=== PATIENT | female | born 1950 | race Caucasian/White ===

== ENCOUNTER 2017-12-09 05:35 | Inpatient (IN) | payer MEDICARE, MEDICAID ==
[~2017-12-09] VITALS: Ht 157.5 cm; Wt 70.3 kg
[~2017-12-09 05:35] MED LIST: BENA5TAB3 PO; CLOP75TA16 PO; FERR325T6 PO; INSNOV SUBCUT; INSU100I28 SQ; LEVO50TA8 PO; METF10002 PO; NAP5EC PO; PRAV10TA35 PO; PREG75CA PO; TRAM50TA3 PO
[2017-12-16] VITALS (41 sets, daily range): BP systolic 90–194; BP diastolic 33–170
[2017-12-16 10:00] LABS: BASOPHILS % 0.6 % (0.0-2.0); EOSINOPHILS % 3.4 % (0.0-5.0); HEMATOCRIT. 34.9 % (36.0-48.0); HEMOGLOBIN. 11.3 g/dL (12.0-16.0); LYMPHOCYTES % 28.9 % (20.0-50.0); MEAN CORPUSCULAR HEMOGLOBIN 29.4 pg (28.0-32.0); MEAN CORPUSCULAR VOLUME 90.8 fL (81.0-99.0); MEAN PLATELET VOLUME 9.3 fl (7.4-10.4); MONOCYTES % 7.5 % (2.0-8.0); NEUTROPHILS % 59.6 % (40.0-76.0); PLATELET 335 x1000/uL (130-400); RED BLOOD CELL COUNT 3.84 mill/uL (4.2-5.4); RED CELL DISTRIBUTION WIDTH 17.4 % (11.6-14.6)
[2017-12-16 10:05] LABS: CHLORIDE 106 mEq/L (98-107)
[2017-12-16] MEDS ORDERED: FENTANYL CITRATE/PF 50MCG/ML 2ML VIAL ONE (10:31)
[2017-12-16] MEDS ORDERED: ROCURONIUM BROMIDE 10MG/ML VIAL 5ML IV ONE (10:31)
[2017-12-16] MEDS ORDERED: GLYCOPYRROLATE 0.2 MG/ML 2ML VIAL ONE ×2 (10:32→12:00)
[2017-12-16] MEDS ORDERED: NEOSTIGMINE METHYLSULFATE 1MG/ML 10 ML VIAL ONE (10:32)
[2017-12-16] MEDS ORDERED: PROPOFOL 200MG/20ML VIAL IV ONE (10:32)
[2017-12-16] MEDS ORDERED: MIDAZOLAM HCL 2 MG/2 ML VIAL ONE (10:32)
[2017-12-16] MEDS ORDERED: VANCOMYCIN HCL 500 MG/VIAL ONE (10:53)
[2017-12-16] MEDS ORDERED: NORMAL SALINE 0.9% 10 ML SYR ONE ×2 (10:54→14:17)
[2017-12-16] MEDS ORDERED: DEXAMETHASONE 4MG/ML 1ML VIAL ONE (11:04)
[2017-12-16] MEDS ORDERED: ONDANSETRON HCL 4MG/2ML VIAL ONE (11:04)
[2017-12-16] MEDS ORDERED: FENTANYL CITRATE/PF 50MCG/ML 5ML VIAL ONE (11:04)
[2017-12-16] MEDS ORDERED: HYDROMORPHONE HCL/PF 2MG/ML CPJ IV PRN (12:15)
[2017-12-16] MEDS ORDERED: LABETALOL 5MG/ML SYR 20 MG/4 ML SYRINGE IV PRN (12:15)
[2017-12-16] MEDS ORDERED: MEPERIDINE HCL/PF 25MG/ML CPJ IV PRN (12:15)
[2017-12-16] MEDS ORDERED: ONDANSETRON HCL 4MG/2ML VIAL IV PRN (12:15)
[2017-12-16] MEDS ORDERED: NICARDIPINE 100 MG in SODIUM CHLORIDE 0.9% 60 ML IV PRN ×2 (12:30→13:30)
[2017-12-16] MEDS: DEXT 5%/LACTATED RINGERS 1,000 ML IV SCH ×2 (13:21→21:12)
[2017-12-16] MEDS: MORPHINE SULFATE 4 MG/ML CPJ (NOT FOR IM USE) IV PRN (14:12)
[2017-12-16] MEDS ORDERED: NALOXONE INJ IV PRN (14:15)
[2017-12-16] MEDS ORDERED: DIPHENHYDRAMINE INJ IV PRN (14:15)
[2017-12-16] MEDS ORDERED: ONDANSETRON INJ IV PRN (14:15)
[2017-12-16] MEDS ORDERED: BACITRACIN 50,000 UNITS/VIAL ONE (14:17)
[2017-12-16] MEDS ORDERED: GELATIN SPONGE,ABSORBABLE SZ 100 ONE (14:17)
[2017-12-16] MEDS ORDERED: THROMBIN (BOVINE) 5000 UNITS/VIAL TOP ONE (14:17)
[2017-12-16] MEDS ORDERED: LIDOCAINE 1%/EPI 1:100,000 10 ML VIAL IJ ONE (14:17)
[2017-12-16] MEDS ORDERED: IPRATROPIUM/ALBUTEROL 0.5-3(2.5)MG/3ML NEB HHN PRN (14:30)
[2017-12-16 14:31] LABS: BG BASE EXCESS -2.6 mmol/L (-2.0-2.0); BG CARBOXYHEMOGLOBIN 0.3 % (0.5-1.5); BG DEOXYHEMOGLOBIN 0.4 % (0.0-5.0); BG FRACTION INSPIRED OXYGEN 100; BG HCO3 ACT 17.6 mmol/L (22.0-26.0); BG METHEMOGLOBIN 0.1 % (0.0-1.5); BG OXYGEN SATURATION 99.6 % (92.0-98.5); BG OXYHEMOGLOBIN 99.2 % (94.0-97.0); BG PCO2 19.6 mmHg (35.0-45.0); BG PH 7.572 (7.350-7.450); BG PO2 > 602.7 mmHg (75.0-100.0); BG SAMPLE SITE A-LINE; BG TIDAL VOLUME(mL) 500 mL; BG TOTAL HEMOGLOBIN 11.1 g/dL (12.0-18.0); BG VENT MODE VENT - A/C; BG VENT RATE 12 set
[2017-12-16] MEDS ORDERED: HYDROMORPHONE PCA 10MG/50ML IV PRN (15:00)
[2017-12-16] MEDS: PANTOPRAZOLE SODIUM 40 MG/VIAL IV SCH (15:44)
[2017-12-16 15:54] LABS: BG BASE EXCESS -3.4 mmol/L (-2.0-2.0); BG CARBOXYHEMOGLOBIN 0.3 % (0.5-1.5); BG DEOXYHEMOGLOBIN 0.7 % (0.0-5.0); BG FRACTION INSPIRED OXYGEN 35; BG HCO3 ACT 19.8 mmol/L (22.0-26.0); BG METHEMOGLOBIN 0.2 % (0.0-1.5); BG OXYHEMOGLOBIN 98.8 % (94.0-97.0); BG PCO2 29.6 mmHg (35.0-45.0); BG PEEP (cmH2O) 0 cmH2O; BG PH 7.443 (7.350-7.450); BG PO2 216.7 mmHg (75.0-100.0); BG PRESSURE SUPPORT 8; BG SAMPLE SITE A-LINE; BG TOTAL HEMOGLOBIN 11.2 g/dL (12.0-18.0); BG VENT MODE VENT - CPAP
[2017-12-16] MEDS: VANCOMYCIN 1 G PREMIX 200 ML IV SCH (18:45)
[2017-12-16] MEDS: DEXAMETHASONE 4MG/ML 1ML VIAL IV SCH (18:45)
[2017-12-16] MEDS: IPRATROPIUM/ALBUTEROL 0.5-3(2.5)MG/3ML NEB HHN SCH (20:17)
[2017-12-17] VITALS (74 sets, daily range): BP systolic 81–148; BP diastolic 40–100
[2017-12-17] MEDS: DEXAMETHASONE 4MG/ML 1ML VIAL IV SCH ×4 (00:13→18:15)
[2017-12-17] MEDS: IPRATROPIUM/ALBUTEROL 0.5-3(2.5)MG/3ML NEB HHN SCH ×2 (01:57→08:25)
[2017-12-17] MEDS: DEXT 5%/LACTATED RINGERS 1,000 ML IV SCH ×3 (04:40→20:50)
[2017-12-17] MEDS: VANCOMYCIN 1 G PREMIX 200 ML IV SCH (06:57)
[2017-12-17 08:49] LABS: HEMOGLOBIN. 9.8 g/dL (12.0-16.0); MEAN CORPUSCULAR HEMOGLOBIN 29.9 pg (28.0-32.0); MEAN CORPUSCULAR VOLUME 91.5 fL (81.0-99.0); MEAN PLATELET VOLUME 9.7 fl (7.4-10.4); PLATELET 303 x1000/uL (130-400); RED BLOOD CELL COUNT 3.28 mill/uL (4.2-5.4); RED CELL DISTRIBUTION WIDTH 17.3 % (11.6-14.6)
[2017-12-17 08:50] LABS: CHLORIDE 105 mEq/L (98-107)
[2017-12-17] MEDS: PANTOPRAZOLE SODIUM 40 MG/VIAL IV SCH (08:55)
[2017-12-17] MEDS ORDERED: BISACODYL 5MG TABLET PO PRN (10:15)
[2017-12-17] MEDS: DOCUSATE SODIUM 250MG CAPSULE PO SCH (10:15)
[2017-12-17 10:39] LABS: PLATELET ESTIMATE NORMAL
[2017-12-17] MEDS ORDERED: DEXTROSE 50% WATER 50ML SYRINGE IV PRN (11:45)
[2017-12-17] MEDS: INSULIN LISPRO 100 UNITS/ML SUBCUT SCH ×3 (12:00→20:50)
[2017-12-17] MEDS: BLOOD SUGAR DIAGNOSTIC STRIP TEST SCH ×3 (12:28→20:50)
[2017-12-17] MEDS: VANCOMYCIN 750 MG PREMIX 150 ML IV SCH (20:20)
[2017-12-18] VITALS (40 sets, daily range): BP systolic 102–152; BP diastolic 55–98
[2017-12-18] MEDS: DEXAMETHASONE 4MG/ML 1ML VIAL IV SCH ×4 (00:42→17:11)
[2017-12-18] MEDS: DEXT 5%/LACTATED RINGERS 1,000 ML IV SCH (05:20)
[2017-12-18] MEDS: BLOOD SUGAR DIAGNOSTIC STRIP TEST SCH ×4 (05:40→21:25)
[2017-12-18 06:07] LABS: HEMATOCRIT. 28.2 % (36.0-48.0); HEMOGLOBIN. 9.2 g/dL (12.0-16.0); MEAN CORPUSCULAR HEMOGLOBIN 29.6 pg (28.0-32.0); MEAN CORPUSCULAR VOLUME 90.9 fL (81.0-99.0); MEAN PLATELET VOLUME 9.7 fl (7.4-10.4); PLATELET 281 x1000/uL (130-400); RED CELL DISTRIBUTION WIDTH 17.2 % (11.6-14.6)
[2017-12-18] MEDS: INSULIN LISPRO 100 UNITS/ML SUBCUT SCH ×4 (06:13→21:24)
[2017-12-18 06:28] LABS: CHLORIDE 107 mEq/L (98-107)
[2017-12-18] MEDS: PANTOPRAZOLE SODIUM 40 MG/VIAL IV SCH (08:33)
[2017-12-18] MEDS: VANCOMYCIN 750 MG PREMIX 150 ML IV SCH ×2 (08:33→20:08)
[2017-12-18] MEDS: DOCUSATE SODIUM 250MG CAPSULE PO SCH (08:59)
[2017-12-18 12:34] LABS: PLATELET ESTIMATE NORMAL
[2017-12-19] VITALS: BP 111/64
[2017-12-19 04:00] VITALS: BP 136/71
[2017-12-19] MEDS: BLOOD SUGAR DIAGNOSTIC STRIP TEST SCH ×4 (06:21→20:45)
[2017-12-19 06:33] LABS: HEMATOCRIT. 27.1 % (36.0-48.0); HEMOGLOBIN. 8.8 g/dL (12.0-16.0); LYMPHOCYTES % 10.4 % (20.0-50.0); MEAN CORPUSCULAR HEMOGLOBIN 29.2 pg (28.0-32.0); MEAN CORPUSCULAR VOLUME 90.3 fL (81.0-99.0); MEAN PLATELET VOLUME 9.8 fl (7.4-10.4); MONOCYTES % 5.7 % (2.0-8.0); NEUTROPHILS % 83.9 % (40.0-76.0); PLATELET 269 x1000/uL (130-400); RED CELL DISTRIBUTION WIDTH 17.1 % (11.6-14.6)
[2017-12-19 07:26] LABS: CHLORIDE 107 mEq/L (98-107)
[2017-12-19 08:00] VITALS: BP 136/73
[2017-12-19] MEDS: INSULIN LISPRO 100 UNITS/ML SUBCUT SCH ×4 (08:19→20:45)
[2017-12-19] MEDS: PANTOPRAZOLE SODIUM 40 MG/VIAL IV SCH (08:23)
[2017-12-19] MEDS: DOCUSATE SODIUM 250MG CAPSULE PO SCH (08:23)
[2017-12-19 12:00] VITALS: BP 147/70
[2017-12-19 16:00] VITALS: BP_SYST 117
[2017-12-19] MEDS: HYDROCODONE/ACETAMINOPHEN 10/325MG TABLET PO PRN (17:18)
[2017-12-19 20:00] VITALS: BP 121/66
[2017-12-20] VITALS: BP 139/70
[2017-12-20 04:00] VITALS: BP 127/69
[2017-12-20] MEDS: HYDROCODONE/ACETAMINOPHEN 10/325MG TABLET PO PRN ×2 (05:20→12:21)
[2017-12-20] MEDS: BLOOD SUGAR DIAGNOSTIC STRIP TEST SCH ×4 (06:26→20:21)
[2017-12-20 07:28] LABS: EOSINOPHILS % 1.6 % (0.0-5.0); HEMATOCRIT. 29.1 % (36.0-48.0); HEMOGLOBIN. 9.4 g/dL (12.0-16.0); LYMPHOCYTES % 43.8 % (20.0-50.0); MEAN CORPUSCULAR HEMOGLOBIN 29.1 pg (28.0-32.0); MEAN CORPUSCULAR VOLUME 90.3 fL (81.0-99.0); MEAN PLATELET VOLUME 9.7 fl (7.4-10.4); MONOCYTES % 9.2 % (2.0-8.0); NEUTROPHILS % 45.4 % (40.0-76.0); PLATELET 290 x1000/uL (130-400); RED BLOOD CELL COUNT 3.22 mill/uL (4.2-5.4); RED CELL DISTRIBUTION WIDTH 16.8 % (11.6-14.6)
[2017-12-20 07:43] LABS: CHLORIDE 108 mEq/L (98-107)
[2017-12-20] MEDS: INSULIN LISPRO 100 UNITS/ML SUBCUT SCH ×4 (07:50→20:20)
[2017-12-20 08:00] VITALS: BP 134/70
[2017-12-20] MEDS: PANTOPRAZOLE SODIUM 40 MG/VIAL IV SCH (08:34)
[2017-12-20] MEDS: DOCUSATE SODIUM 250MG CAPSULE PO SCH (08:35)
[2017-12-20 12:00] VITALS: BP 128/77
[2017-12-20 16:00] VITALS: BP 131/71
[2017-12-20] MEDS: MORPHINE SULFATE 4 MG/ML CPJ (NOT FOR IM USE) IV PRN ×2 (16:55→23:44)
[2017-12-20 20:00] VITALS: BP 139/71
[2017-12-21] VITALS: BP 118/67
[2017-12-21 04:00] VITALS: BP 121/71
[2017-12-21] MEDS: FAMOTIDINE 20MG TABLET PO SCH ×2 (06:19→18:02)
[2017-12-21] MEDS: BLOOD SUGAR DIAGNOSTIC STRIP TEST SCH ×4 (06:20→21:21)
[2017-12-21] MEDS: INSULIN LISPRO 100 UNITS/ML SUBCUT SCH ×4 (07:50→21:21)
[2017-12-21 08:30] VITALS: BP 130/71
[2017-12-21] MEDS: DOCUSATE SODIUM 250MG CAPSULE PO SCH (09:46)
[2017-12-21] MEDS: MORPHINE SULFATE 4 MG/ML CPJ (NOT FOR IM USE) IV PRN (09:48)
[2017-12-21 10:05] LABS: CHLORIDE 102 mEq/L (98-107)
[2017-12-21 10:17] LABS: BASOPHILS % 0.1 % (0.0-2.0); HEMATOCRIT. 31.5 % (36.0-48.0); HEMOGLOBIN. 10.6 g/dL (12.0-16.0); LYMPHOCYTES % 28.1 % (20.0-50.0); MEAN CORPUSCULAR HEMOGLOBIN 30.2 pg (28.0-32.0); MEAN PLATELET VOLUME 9.4 fl (7.4-10.4); MONOCYTES % 7.7 % (2.0-8.0); NEUTROPHILS % 60.1 % (40.0-76.0); PLATELET 327 x1000/uL (130-400); RED CELL DISTRIBUTION WIDTH 16.9 % (11.6-14.6)
[2017-12-21 12:00] VITALS: BP 136/70
[2017-12-21 16:00] VITALS: BP 138/89
[2017-12-21] MEDS: HYDROCODONE/ACETAMINOPHEN 10/325MG TABLET PO PRN (19:44)
[2017-12-21 20:00] VITALS: BP 128/80
[2017-12-22] VITALS (7 sets, daily range): BP systolic 113–130; BP diastolic 69–88
[2017-12-22] MEDS: BLOOD SUGAR DIAGNOSTIC STRIP TEST SCH ×3 (06:26→17:31)
[2017-12-22] MEDS: FAMOTIDINE 20MG TABLET PO SCH ×2 (06:26→17:32)
[2017-12-22] MEDS: HYDROCODONE/ACETAMINOPHEN 10/325MG TABLET PO PRN ×2 (06:33→17:34)
[2017-12-22] MEDS: DOCUSATE SODIUM 250MG CAPSULE PO SCH (08:02)
[2017-12-22] MEDS: INSULIN LISPRO 100 UNITS/ML SUBCUT SCH ×3 (08:10→18:10)
== END 2017-12-22 19:57 | disposition short-term general hospital (02) | DRG 471 ==
LOC: ORIP 05:35 → UNDOADMIN 05:35 → EDSTATUS 07:00 → ORIP 12-16 08:40 → MICUNO 12-16 13:04 → 6EST 12-18 20:47 → EDSTATUS 12-21 07:00
PROVIDERS: ADMIT Internal Medicine; ATTEND Internal Medicine
PROC: 0RB30ZZ Excision of Cervical Vertebral Disc, Open Approach (ICD-10-PCS; 2017-12-16)
PROC: 0RG20A0 Fusion of 2 or more Cervical Vertebral Joints with Interbody Fusion Device, Anterior Approach, Anterior Column, Open Approach (ICD-10-PCS; principal; 2017-12-16 10:30)
DX: M47.12 Other spondylosis with myelopathy, cervical region (principal); G82.50 Quadriplegia, unspecified; G95.20 Unspecified cord compression; D64.9 Anemia, unspecified; E11.9 Type 2 diabetes mellitus without complications; D72.829 Elevated white blood cell count, unspecified; E03.9 Hypothyroidism, unspecified; T38.0X5A Adverse effect of glucocorticoids and synthetic analogues, initial encounter; E78.5 Hyperlipidemia, unspecified; M47.22 Other spondylosis with radiculopathy, cervical region; I10 Essential (primary) hypertension; K21.9 Gastro-esophageal reflux disease without esophagitis; M48.02 Spinal stenosis, cervical region; Z86.73 Personal history of transient ischemic attack (TIA), and cerebral infarction without residual deficits; Z90.721 Acquired absence of ovaries, unilateral
CPT/HCPCS: 36415; 36600; 71045; 72040; 72141; 80048; 80053; 82375; 82805; 82962; 83036; 85025; 86850; 86900; 87040; 87086; 88304; 88311; 93005; 94003; 94640; 95925; 95926; 95928; 97116; 97163; 97166; 97530; 97535; A4216; C1713; C1893; C9113; J1100; J1815; J2250; J2270; J2405; J2704; J2710; J3010; J3370; J3490; J7050; J7120; J7620; L0172

== ENCOUNTER → 2018-03-09 | Outpatient (CLI) | payer MEDICARE, MEDICAID ==
[~2018-03-09] MED LIST changes: -METF10002 PO; +METF10004 PO
== END | disposition home or self-care (01) ==
LOC: RAD 10:26
PROVIDERS: ATTEND Neurological Surgery
DX: M54.2 Cervicalgia (principal); E11.9 Type 2 diabetes mellitus without complications; I10 Essential (primary) hypertension; K21.9 Gastro-esophageal reflux disease without esophagitis
CPT/HCPCS: 72052

== ENCOUNTER 2018-10-02 10:08 | Emergency (ER) | payer MEDICARE, MEDICAID ==
[~2018-10-02] VITALS: Ht 157.5 cm; Wt 60.0 kg
[~2018-10-02 10:08] MED LIST changes: -BENA5TAB3 PO; +BENA5TAB6 PO; +METF-416 PO; -METF10004 PO
[2018-10-02] MEDS ORDERED: SODIUM CHLORIDE 0.9% 1,000 ML IV ONE (10:50)
[2018-10-02 11:52] LABS: HEMATOCRIT. 32.3 % (36.0-48.0); LYMPHOCYTES % 18.8 % (20.0-50.0); MEAN CORPUSCULAR VOLUME 80.5 fL (81.0-99.0); MEAN PLATELET VOLUME 9.4 fl (7.4-10.4); MONOCYTES % 5.5 % (2.0-8.0); NEUTROPHILS % 75.7 % (40.0-76.0); PLATELET 367 x1000/uL (130-400); RED BLOOD CELL COUNT 4.02 mill/uL (4.2-5.4); RED CELL DISTRIBUTION WIDTH 17.2 % (11.6-14.6)
[2018-10-02 11:58] LABS: CHLORIDE 101 mEq/L (98-107)
[2018-10-02 12:04] LABS: BETA HYDROXYBUTYRATE 0.2 mMol/L (0.0-0.3)
[2018-10-02 12:08] LABS: AMYLASE 37 IU/L (25-115)
[2018-10-02] MEDS ORDERED: ACETAMINOPHEN 325MG TABLET PO ONE (12:15)
[2018-10-02] MEDS ORDERED: INSULIN REGULAR (HUMULIN R) 300UNITS/3ML SUBCUT ONE ×2 (13:00→16:15)
[2018-10-02 17:16] VITALS: BP 99/59
== END 2018-10-02 18:00 | disposition home or self-care (01) ==
LOC: ER 10:08 → CANBEDREQ 16:09 → ER 18:00
DX: E11.65 Type 2 diabetes mellitus with hyperglycemia (principal); Z79.4 Long term (current) use of insulin; E86.0 Dehydration; R51 Headache; I10 Essential (primary) hypertension; Z88.0 Allergy status to penicillin
CPT/HCPCS: 36415; 71045; 80053; 82010; 82150; 82962; 83690; 84484; 85025; 93005; 96360; 96361; 96372; 99284; J1815; J7030

== ENCOUNTER 2019-01-02 16:42 | Inpatient (IN) | payer MEDICARE, MEDICAID ==
[~2019-01-02] VITALS: Ht 157.5 cm; Wt 59.9 kg
[2019-01-02] MEDS ORDERED: SODIUM CHLORIDE 0.9% 1,000 ML IV ONE (18:59)
[2019-01-02] MEDS ORDERED: INSULIN REGULAR 0.5UNIT/ML SYR(NEO) IV ONE (19:00)
[2019-01-02 19:25] LABS: CHLORIDE 105 mEq/L (98-107)
[2019-01-02 19:27] LABS: BASOPHILS % 0.6 % (0.0-2.0); EOSINOPHILS % 4.6 % (0.0-5.0); HEMATOCRIT. 31.8 % (36.0-48.0); LYMPHOCYTES % 38.7 % (20.0-50.0); MEAN CORPUSCULAR HEMOGLOBIN 25.8 pg (28.0-32.0); MEAN CORPUSCULAR VOLUME 82.2 fL (81.0-99.0); MEAN PLATELET VOLUME 9.2 fl (7.4-10.4); MONOCYTES % 8.8 % (2.0-8.0); NEUTROPHILS % 47.3 % (40.0-76.0); PLATELET 365 x1000/uL (130-400); RED BLOOD CELL COUNT 3.87 mill/uL (4.2-5.4); RED CELL DISTRIBUTION WIDTH 17.5 % (11.6-14.6)
[2019-01-02 19:39] LABS: BG BASE EXCESS -6.8 mmol/L (-2.0-2.0); BG CARBOXYHEMOGLOBIN 0.3 % (0.5-1.5); BG DEOXYHEMOGLOBIN 4.3 % (0.0-5.0); BG FRACTION INSPIRED OXYGEN 21; BG HCO3 ACT 17.8 mmol/L (22.0-26.0); BG METHEMOGLOBIN 0.6 % (0.0-1.5); BG OXYGEN SATURATION 95.7 % (92.0-98.5); BG OXYHEMOGLOBIN 94.8 % (94.0-97.0); BG PCO2 32.1 mmHg (35.0-45.0); BG PH 7.361 (7.350-7.450); BG PO2 87.3 mmHg (75.0-100.0); BG SAMPLE SITE RIGHT RADIAL; BG TOTAL HEMOGLOBIN 9.2 g/dL (12.0-18.0); BG VENT MODE ROOM AIR
[2019-01-02] MEDS ORDERED: INSULIN REGULAR (HUMULIN R) 300UNITS/3ML IV NR (19:45)
[2019-01-02 20:16] LABS: CLARITY URINE CLEAR (CLEAR); COLOR URINE YELLOW (YELLOW); KETONES URINE NEGATIVE (NEGATIVE); LEUKOCYTE ESTERASE URINE TRACE (NEGATIVE); NITRITE URINE NEGATIVE (NEGATIVE); OCCULT BLOOD URINE NEGATIVE (NEGATIVE); PH URINE 5.5 (4.5-8.0); PROTEIN URINE NEGATIVE (NEGATIVE); SPECIFIC GRAVITY URINE 1.036 (1.005-1.030)
[2019-01-02] MEDS ORDERED: ACETAMINOPHEN 325MG TABLET PO ONE (20:45)
[2019-01-02] MEDS ORDERED: CEFTRIAXONE 1 G PREMIX 50 ML IV ONE (21:45)
[2019-01-03] VITALS (7 sets, daily range): BP systolic 104–124; BP diastolic 61–75
[2019-01-03] MEDS ORDERED: DEXTROSE 50% WATER 50ML SYRINGE IV PRN (02:30)
[2019-01-03] MEDS ORDERED: ONDANSETRON HCL 4MG/2ML INJ IV PRN (02:30)
[2019-01-03] MEDS: INSULIN LISPRO 100 UNITS/ML SUBCUT SCH ×6 (06:58→21:00)
[2019-01-03] MEDS ORDERED: BLOOD SUGAR DIAGNOSTIC STRIP TEST SCH (07:10)
[2019-01-03] MEDS: BLOOD SUGAR DIAGNOSTIC STRIP TEST SCH ×4 (07:10→21:17)
[2019-01-03] MEDS ORDERED: GUAIFENESIN 200MG/10ML SUGAR FREE UDC PO PRN (08:30)
[2019-01-03] MEDS: METFORMIN HCL 500MG TABLET PO SCH ×3 (09:01→17:50)
[2019-01-03] MEDS ORDERED: ACETAMINOPHEN 650MG/20.3ML UDC PO PRN (09:45)
[2019-01-03] MEDS: ACETAMINOPHEN 325MG TABLET PO PRN ×2 (16:00→22:34)
[2019-01-03] MEDS ORDERED: IPRATROPIUM/ALBUTEROL 0.5-3(2.5)MG/3ML NEB HHN PRN (17:00)
[2019-01-03] MEDS ORDERED: INSULIN GLARGINE UD 100 UNITS/ML SYR SUBCUT SCH (22:00)
[2019-01-03] MEDS ORDERED: CEFTRIAXONE 1 G PREMIX 50 ML IV SCH (23:00)
[2019-01-04] VITALS: BP 121/72
[2019-01-04 04:00] VITALS: BP 117/67
[2019-01-04] MEDS: ACETAMINOPHEN 325MG TABLET PO PRN (05:02)
[2019-01-04] MEDS: BLOOD SUGAR DIAGNOSTIC STRIP TEST SCH (06:38)
[2019-01-04] MEDS: INSULIN LISPRO 100 UNITS/ML SUBCUT SCH ×2 (06:44→08:30)
[2019-01-04 08:03] VITALS: BP 122/74
[2019-01-04] MEDS: METFORMIN HCL 500MG TABLET PO SCH (08:27)
== END 2019-01-04 11:07 | disposition home or self-care (01) | DRG 638 ==
LOC: ER 16:42 → EDBEDREQ 22:24 → EDBEDREQTM 22:24 → EDBEDREQSVC 22:26 → EDBEDREQ 22:36 → 8WST 22:37 → ENRESERV 23:14 → 6EST 01-03 17:33
PROVIDERS: ADMIT Internal Medicine; ATTEND Internal Medicine
DX: E11.65 Type 2 diabetes mellitus with hyperglycemia (principal); N39.0 Urinary tract infection, site not specified; E78.5 Hyperlipidemia, unspecified; E03.9 Hypothyroidism, unspecified; I10 Essential (primary) hypertension; D64.9 Anemia, unspecified; E78.00 Pure hypercholesterolemia, unspecified; Z86.73 Personal history of transient ischemic attack (TIA), and cerebral infarction without residual deficits; Z88.0 Allergy status to penicillin; Z91.013 Allergy to seafood; Z79.84 Long term (current) use of oral hypoglycemic drugs; Z79.899 Other long term (current) drug therapy
CPT/HCPCS: 36415; 36600; 71045; 82375; 82805; 82962; 83036; 83605; 93005; 96365; 96375; 99285; J0696; J1815; J7030

== ENCOUNTER 2019-05-12 21:35 | Emergency (ER) | payer MEDICARE, MEDICAID ==
[~2019-05-12] VITALS: Ht 157.5 cm; Wt 59.0 kg
[~2019-05-12 21:35] MED LIST changes: -CLOP75TA16 PO; +CLOP75TA4 PO; -FERR325T6 PO; -NAP5EC PO
[2019-05-13] MEDS ORDERED: SODIUM CHLORIDE 0.9% 1,000 ML IV ONE (00:11)
[2019-05-13] MEDS ORDERED: KETOROLAC 15MG/ML VIAL IV ONE (00:15)
[2019-05-13 00:26] LABS: BASOPHILS % 0.8 % (0.0-2.0); EOSINOPHILS % 2.8 % (0.0-5.0); HEMATOCRIT. 29.5 % (36.0-48.0); HEMOGLOBIN. 9.5 g/dL (12.0-16.0); LYMPHOCYTES % 33.2 % (20.0-50.0); MEAN CORPUSCULAR VOLUME 77.8 fL (81.0-99.0); MEAN PLATELET VOLUME 9.2 fl (7.4-10.4); MONOCYTES % 8.5 % (2.0-8.0); NEUTROPHILS % 54.7 % (40.0-76.0); PLATELET 324 x1000/uL (130-400); RED BLOOD CELL COUNT 3.78 mill/uL (4.2-5.4); RED CELL DISTRIBUTION WIDTH 18.7 % (11.6-14.6)
[2019-05-13 00:30] LABS: CHLORIDE 97 mEq/L (98-107)
[2019-05-13 00:35] LABS: CLARITY URINE CLEAR (CLEAR); COLOR URINE YELLOW (YELLOW); KETONES URINE NEGATIVE (NEGATIVE); LEUKOCYTE ESTERASE URINE 1+ (NEGATIVE); NITRITE URINE NEGATIVE (NEGATIVE); OCCULT BLOOD URINE NEGATIVE (NEGATIVE); PROTEIN URINE NEGATIVE (NEGATIVE); SPECIFIC GRAVITY URINE 1.011 (1.005-1.030); UROBILINOGEN URINE 0.2 E.U./dL (0.2-1.0)
[2019-05-13 00:37] LABS: BETA HYDROXYBUTYRATE 0.3 mMol/L (0.0-0.3)
[2019-05-13 06:15] VITALS: BP 105/62
== END 2019-05-13 07:27 | disposition home or self-care (01) ==
LOC: ER 21:35
DX: E11.65 Type 2 diabetes mellitus with hyperglycemia (principal); M79.18 Myalgia, other site; N39.0 Urinary tract infection, site not specified; E78.00 Pure hypercholesterolemia, unspecified; I10 Essential (primary) hypertension; Z90.89 Acquired absence of other organs; E03.9 Hypothyroidism, unspecified; Z98.890 Other specified postprocedural states; Z79.4 Long term (current) use of insulin; Z79.899 Other long term (current) drug therapy; Z88.0 Allergy status to penicillin
CPT/HCPCS: 36415; 71045; 80053; 81003; 82010; 82962; 83690; 85025; 93005; 96361; 96374; 99284; J1885; J7030

== ENCOUNTER → 2020-04-06 | Outpatient (CLI) | payer OTHER, MEDICARE, MEDICAID ==
[~2020-04-06] MED LIST changes: +ATOR20TA65 PO; +BENA10TA74 PO; -BENA5TAB6 PO; +CALC-36 PO; +DOCU-150 MT; +DOCU-150 PO; +FERR-71 PO; +HYDR25TA PO; +INSU100I24 SQ; -TRAM50TA3 PO
== END | disposition home or self-care (01) ==
LOC: LAB 10:44
PROVIDERS: ATTEND Neurological Surgery
DX: Z01.818 Encounter for other preprocedural examination (principal); Z11.59 Encounter for screening for other viral diseases
CPT/HCPCS: C9803; U0003

== ENCOUNTER → 2020-04-09 | Day surgery (SDC) | payer MEDICARE, MEDICAID ==
[~2020-04-09] VITALS: Ht 157.5 cm; Wt 61.7 kg
[~2020-04-09] MED LIST changes: +BACITRACIN 50,000 UNITS/VIAL ONE; +DEXAMETHASONE 4MG/ML 1ML VIAL ONE; +FENTANYL CITRATE/PF 50MCG/ML 2ML VIAL ONE; +GLYCOPYRROLATE 0.2 MG/ML 2ML VIAL ONE; +HYDROMORPHONE HCL/PF 2MG/ML (OR) ONE; +INSULIN REGULAR (HUMULIN R) 300UNITS/3ML IV SCH; +INSULIN REGULAR (HUMULIN R) 300UNITS/3ML ONE; +INSULIN REGULAR (HUMULIN R) 300UNITS/3ML SUBCUT SCH; +LIDOCAINE HCL/EPINEPHRINE 1%-EPI 1:100,000 20 ML VIAL ONE; +MIDAZOLAM HCL 2 MG/2 ML VIAL ONE; +NEOSTIGMINE METHYLSULFATE 1MG/ML 10 ML VIAL ONE; +ONDANSETRON HCL 4MG/2ML INJ ONE; +PROPOFOL 200MG/20ML VIAL IV ONE; +SODIUM CHLORIDE 0.9% 1,000 ML IV SCH; +SODIUM CHLORIDE 0.9% 10ML VIAL ONE; +THROMBIN (BOVINE) 5000 UNITS/VIAL TOP ONE
[2020-04-09 09:00] LABS: CLARITY URINE CLEAR (CLEAR); COLOR URINE YELLOW (YELLOW); KETONES URINE TRACE (NEGATIVE); LEUKOCYTE ESTERASE URINE NEGATIVE (NEGATIVE); NITRITE URINE NEGATIVE (NEGATIVE); OCCULT BLOOD URINE NEGATIVE (NEGATIVE); PROTEIN URINE NEGATIVE (NEGATIVE); SPECIFIC GRAVITY URINE 1.035 (1.005-1.030)
== END | disposition home or self-care (01) ==
LOC: OR 07:58
PROVIDERS: ATTEND Neurological Surgery
DX: M54.2 Cervicalgia (principal); Z53.8 Procedure and treatment not carried out for other reasons; M47.12 Other spondylosis with myelopathy, cervical region; Z79.84 Long term (current) use of oral hypoglycemic drugs; Z79.4 Long term (current) use of insulin; Z88.0 Allergy status to penicillin; Z88.8 Allergy status to other drugs, medicaments and biological substances; Z82.49 Family history of ischemic heart disease and other diseases of the circulatory system; Z83.3 Family history of diabetes mellitus
CPT/HCPCS: 36415; 81003; 82962; 83036; 84132; 86850; 86900; 86901; J1815; J3490

== ENCOUNTER 2020-04-11 05:15 | Inpatient (IN) | payer MEDICARE, MEDICAID ==
[2020-04-11] VITALS (24 sets, daily range): BP systolic 85–126; BP diastolic 35–77
[~2020-04-11] VITALS: Ht 157.5 cm; Wt 59.0 kg
[~2020-04-11 05:15] MED LIST changes: -BACITRACIN 50,000 UNITS/VIAL ONE; -DEXAMETHASONE 4MG/ML 1ML VIAL ONE; -DOCU-150 MT; -DOCU-150 PO; -FENTANYL CITRATE/PF 50MCG/ML 2ML VIAL ONE; -GLYCOPYRROLATE 0.2 MG/ML 2ML VIAL ONE; -HYDROMORPHONE HCL/PF 2MG/ML (OR) ONE; -INSU100I28 SQ; -INSULIN REGULAR (HUMULIN R) 300UNITS/3ML IV SCH; -INSULIN REGULAR (HUMULIN R) 300UNITS/3ML ONE; -INSULIN REGULAR (HUMULIN R) 300UNITS/3ML SUBCUT SCH; -LIDOCAINE HCL/EPINEPHRINE 1%-EPI 1:100,000 20 ML VIAL ONE; -MIDAZOLAM HCL 2 MG/2 ML VIAL ONE; -NEOSTIGMINE METHYLSULFATE 1MG/ML 10 ML VIAL ONE; -ONDANSETRON HCL 4MG/2ML INJ ONE; -PRAV10TA35 PO; -PROPOFOL 200MG/20ML VIAL IV ONE; -SODIUM CHLORIDE 0.9% 1,000 ML IV SCH; -SODIUM CHLORIDE 0.9% 10ML VIAL ONE; -THROMBIN (BOVINE) 5000 UNITS/VIAL TOP ONE
[2020-04-11] MEDS ORDERED: THROMBIN (BOVINE) 5000 UNITS/VIAL TOP ONE ×2 (06:01→06:02)
[2020-04-11] MEDS ORDERED: NORMAL SALINE 0.9% 10 ML SYR ONE (06:01)
[2020-04-11] MEDS ORDERED: BACITRACIN 50,000 UNITS/VIAL ONE (06:02)
[2020-04-11] MEDS ORDERED: LIDOCAINE HCL/EPINEPHRINE 1%-EPI 1:100,000 20 ML VIAL ONE (06:02)
[2020-04-11 06:28] LABS: CHLORIDE 109 mEq/L (98-107); INR 0.9; PARTIAL THROMBOPLASTIN TIME 23.4 sec (23.4-31.0); PROTHROMBIN TIME 9.9 sec (9.6-11.0)
[2020-04-11] MEDS ORDERED: ROCURONIUM BROMIDE 10MG/ML VIAL 5ML IV ONE ×3 (10:13→10:16)
[2020-04-11] MEDS ORDERED: NICARDIPINE 50 MG in SODIUM CHLORIDE 0.9% 230 ML IV PRN (10:15)
[2020-04-11] MEDS ORDERED: MORPHINE SULFATE 4 MG/ML CPJ (NOT FOR IM USE) IV PRN (10:15)
[2020-04-11] MEDS ORDERED: CLINDAMYCIN 900 MG PREMIX 50 ML IV ONE (10:16)
[2020-04-11] MEDS ORDERED: CLINDAMYCIN 600 MG in DEXTROSE 5% WATER 50 ML IV SCH (10:30)
[2020-04-11] MEDS ORDERED: MEPERIDINE HCL/PF 25MG/ML CPJ IV PRN (10:45)
[2020-04-11] MEDS ORDERED: HYDROMORPHONE HCL/PF 2MG/ML CPJ IV PRN (10:45)
[2020-04-11] MEDS ORDERED: LABETALOL 5MG/ML SYR 20 MG/4 ML SYRINGE IV PRN (10:45)
[2020-04-11] MEDS ORDERED: ONDANSETRON HCL 4MG/2ML INJ IV PRN (10:45)
[2020-04-11] MEDS ORDERED: DOCU-150 MT (11:02)
[2020-04-11] MEDS ORDERED: CLOP75TA4 PO (11:03)
[2020-04-11] MEDS ORDERED: INSULIN REGULAR (HUMULIN R) 300UNITS/3ML SUBCUT NR (14:00)
[2020-04-11] MEDS ORDERED: HYDROMORPHONE PCA 10MG/50ML IV PRN (15:15)
[2020-04-11] MEDS ORDERED: ONDANSETRON INJ IV PRN (15:15)
[2020-04-11] MEDS ORDERED: NALOXONE INJ IV PRN (15:15)
[2020-04-11] MEDS ORDERED: DEXTROSE 50% WATER 50ML SYRINGE IV PRN (16:45)
[2020-04-11] MEDS: BLOOD SUGAR DIAGNOSTIC STRIP TEST SCH ×2 (17:09→21:41)
[2020-04-11] MEDS ORDERED: IPRATROPIUM/ALBUTEROL 0.5-3(2.5)MG/3ML NEB HHN PRN (17:30)
[2020-04-11] MEDS ORDERED: THROAT LOZENGES-BENZOCAINE/MENTH/CETYLPYRD CL LOZENGES MM PRN (17:30)
[2020-04-11] MEDS: INSULIN LISPRO 100 UNITS/ML SUBCUT SCH ×2 (17:31→21:43)
[2020-04-11 17:37] LABS: BG BASE EXCESS -7.6 mmol/L (-2.0-2.0); BG CARBOXYHEMOGLOBIN 0.3 % (0.5-1.5); BG DEOXYHEMOGLOBIN 0.6 % (0.0-5.0); BG FRACTION INSPIRED OXYGEN 50; BG HCO3 ACT 16.1 mmol/L (22.0-26.0); BG METHEMOGLOBIN 0.3 % (0.0-1.5); BG OXYGEN SATURATION 99.4 % (92.0-98.5); BG OXYHEMOGLOBIN 98.8 % (94.0-97.0); BG PCO2 27.4 mmHg (35.0-45.0); BG PH 7.388 (7.350-7.450); BG PO2 277.9 mmHg (75.0-100.0); BG PRESSURE SUPPORT 10; BG SAMPLE SITE RIGHT RADIAL; BG TOTAL HEMOGLOBIN 10.5 g/dL (12.0-18.0); BG VENT MODE VENT - CPAP
[2020-04-11] MEDS: DEXAMETHASONE 4MG/ML 1ML VIAL IV SCH (18:03)
[2020-04-11] MEDS: MORPHINE SULFATE 4 MG/ML CPJ (NOT FOR IM USE) IV NR ×2 (18:04→20:47)
[2020-04-11] MEDS: SODIUM CHLORIDE 0.9% 1,000 ML IV SCH (18:31)
[2020-04-11 18:40] LABS: HEMATOCRIT. 29.7 % (36.0-48.0); HEMOGLOBIN. 9.5 g/dL (12.0-16.0); MEAN CORPUSCULAR HEMOGLOBIN 27.1 pg (28.0-32.0); MEAN CORPUSCULAR VOLUME 84.3 fL (81.0-99.0); MEAN PLATELET VOLUME 9.6 fl (7.4-10.4); PLATELET 287 x1000/uL (130-400); RED BLOOD CELL COUNT 3.52 mill/uL (4.2-5.4); RED CELL DISTRIBUTION WIDTH 16.8 % (11.6-14.6)
[2020-04-11 20:14] LABS: PLATELET ESTIMATE NORMAL
[2020-04-11] MEDS: CLINDAMYCIN 600MG PREMIX 50 ML IV SCH (22:48)
[2020-04-12] VITALS (29 sets, daily range): BP systolic 51–128; BP diastolic 43–88
[2020-04-12] MEDS: DEXAMETHASONE 4MG/ML 1ML VIAL IV SCH ×4 (00:17→17:56)
[2020-04-12] MEDS: SODIUM CHLORIDE 0.9% 1,000 ML IV SCH ×2 (02:56→22:50)
[2020-04-12 05:45] LABS: HEMATOCRIT. 27.6 % (36.0-48.0); HEMOGLOBIN. 8.7 g/dL (12.0-16.0); MEAN CORPUSCULAR HEMOGLOBIN 26.9 pg (28.0-32.0); MEAN PLATELET VOLUME 9.8 fl (7.4-10.4); PLATELET 273 x1000/uL (130-400); RED BLOOD CELL COUNT 3.24 mill/uL (4.2-5.4); RED CELL DISTRIBUTION WIDTH 16.6 % (11.6-14.6)
[2020-04-12 05:46] LABS: CHLORIDE 112 mEq/L (98-107)
[2020-04-12] MEDS: BLOOD SUGAR DIAGNOSTIC STRIP TEST SCH ×4 (05:59→21:00)
[2020-04-12] MEDS: CLINDAMYCIN 600MG PREMIX 50 ML IV SCH ×3 (06:50→22:49)
[2020-04-12] MEDS: INSULIN LISPRO 100 UNITS/ML SUBCUT SCH ×4 (06:52→23:15)
[2020-04-12 07:56] LABS: PLATELET ESTIMATE NORMAL
[2020-04-12] MEDS ORDERED: OXYCODONE HCL/ACETAMINOPHEN 5/325MG TABLET PO PRN (10:30)
[2020-04-12] MEDS ORDERED: DEXTROSE 50% WATER 50ML SYRINGE IV PRN (15:00)
[2020-04-12] MEDS: METFORMIN HCL 500MG TABLET PO SCH (17:56)
[2020-04-12] MEDS: FERROUS SULFATE 325MG TABLET PO SCH (18:00)
[2020-04-12] MEDS: BENAZEPRIL 10MG TABLET PO SCH (21:00)
[2020-04-12] MEDS ORDERED: INSULIN GLARGINE UD 100 UNITS/ML SYR SUBCUT SCH (22:00)
[2020-04-12] MEDS: INSULIN GLARGINE UD 100 UNITS/ML SYR SUBCUT SCH (23:14)
[2020-04-13] VITALS: BP_SYST 71; BP_SYST 95; BP_DIAS 27; BP_DIAS 48
[2020-04-13 04:00] VITALS: BP 86/45
[2020-04-13] MEDS: CLINDAMYCIN 600MG PREMIX 50 ML IV SCH ×3 (06:07→21:31)
[2020-04-13] MEDS: LEVOTHYROXINE SODIUM 50MCG TABLET PO SCH (06:31)
[2020-04-13] MEDS: BLOOD SUGAR DIAGNOSTIC STRIP TEST SCH ×4 (07:25→20:22)
[2020-04-13] MEDS: INSULIN LISPRO 100 UNITS/ML SUBCUT SCH ×4 (07:47→21:30)
[2020-04-13 08:00] VITALS: BP 101/59
[2020-04-13 08:41] LABS: BASOPHILS % 0.2 % (0.0-2.0); HEMATOCRIT. 24.3 % (36.0-48.0); HEMOGLOBIN. 7.8 g/dL (12.0-16.0); MEAN CORPUSCULAR HEMOGLOBIN 27.1 pg (28.0-32.0); MEAN CORPUSCULAR VOLUME 84.7 fL (81.0-99.0); MEAN PLATELET VOLUME 9.4 fl (7.4-10.4); MONOCYTES % 5.4 % (2.0-8.0); NEUTROPHILS % 83.4 % (40.0-76.0); PLATELET 267 x1000/uL (130-400); RED BLOOD CELL COUNT 2.88 mill/uL (4.2-5.4); RED CELL DISTRIBUTION WIDTH 17.1 % (11.6-14.6)
[2020-04-13] MEDS: METFORMIN HCL 500MG TABLET PO SCH ×2 (08:44→17:05)
[2020-04-13] MEDS: ATORVASTATIN CALCIUM 20MG TABLET PO SCH (08:44)
[2020-04-13] MEDS: DOCUSATE SODIUM 100MG CAPSULE PO SCH ×2 (08:44→17:05)
[2020-04-13] MEDS: CLOPIDOGREL 75MG TABLET PO SCH (08:44)
[2020-04-13] MEDS: SODIUM CHLORIDE 0.9% 1,000 ML IV SCH ×2 (08:45→17:05)
[2020-04-13] MEDS: HYDROCHLOROTHIAZIDE 25MG TABLET PO SCH (08:45)
[2020-04-13 08:54] LABS: CHLORIDE 111 mEq/L (98-107)
[2020-04-13] MEDS: INSULIN GLARGINE UD 100 UNITS/ML SYR SUBCUT SCH ×2 (09:40→21:29)
[2020-04-13 12:00] VITALS: BP 113/72
[2020-04-13 16:00] VITALS: BP 142/75
[2020-04-13] MEDS: FERROUS SULFATE 325MG TABLET PO SCH (17:05)
[2020-04-13 20:00] VITALS: BP 118/50
[2020-04-13] MEDS: BENAZEPRIL 10MG TABLET PO SCH (21:30)
[2020-04-14] VITALS: BP 111/60
[2020-04-14 04:00] VITALS: BP 111/63
[2020-04-14] MEDS: SODIUM CHLORIDE 0.9% 1,000 ML IV SCH (04:16)
[2020-04-14] MEDS: LEVOTHYROXINE SODIUM 50MCG TABLET PO SCH (06:20)
[2020-04-14] MEDS: BLOOD SUGAR DIAGNOSTIC STRIP TEST SCH ×4 (07:03→21:00)
[2020-04-14] MEDS: INSULIN LISPRO 100 UNITS/ML SUBCUT SCH ×4 (07:29→21:00)
[2020-04-14 08:00] VITALS: BP 114/59
[2020-04-14] MEDS: DOCUSATE SODIUM 100MG CAPSULE PO SCH ×2 (10:06→17:05)
[2020-04-14] MEDS: CLOPIDOGREL 75MG TABLET PO SCH (10:06)
[2020-04-14] MEDS: ATORVASTATIN CALCIUM 20MG TABLET PO SCH (10:06)
[2020-04-14] MEDS: METFORMIN HCL 500MG TABLET PO SCH ×2 (10:07→17:08)
[2020-04-14] MEDS: HYDROCHLOROTHIAZIDE 25MG TABLET PO SCH (10:07)
[2020-04-14] MEDS: INSULIN GLARGINE UD 100 UNITS/ML SYR SUBCUT SCH ×2 (10:22→22:39)
[2020-04-14 12:00] VITALS: BP 136/66
[2020-04-14 16:00] VITALS: BP 133/69
[2020-04-14] MEDS: FERROUS SULFATE 325MG TABLET PO SCH (17:05)
[2020-04-14] MEDS ORDERED: HYDROMORPHONE HCL/PF 2MG/ML CPJ IV PRN (18:30)
[2020-04-14 20:00] VITALS: BP 120/66
[2020-04-14] MEDS: BENAZEPRIL 10MG TABLET PO SCH (21:54)
[2020-04-15] VITALS: BP 124/83
[2020-04-15 04:00] VITALS: BP 104/64
[2020-04-15] MEDS: HYDROCODONE/ACETAMINOPHEN 5/325MG TABLET PO PRN ×2 (04:45→13:13)
[2020-04-15] MEDS: INSULIN LISPRO 100 UNITS/ML SUBCUT SCH ×4 (07:50→21:00)
[2020-04-15 08:00] VITALS: BP 116/54
[2020-04-15] MEDS: BLOOD SUGAR DIAGNOSTIC STRIP TEST SCH ×4 (08:00→21:31)
[2020-04-15] MEDS: ATORVASTATIN CALCIUM 20MG TABLET PO SCH (08:24)
[2020-04-15] MEDS: METFORMIN HCL 500MG TABLET PO SCH ×2 (08:24→16:52)
[2020-04-15] MEDS: DOCUSATE SODIUM 100MG CAPSULE PO SCH ×2 (08:24→16:49)
[2020-04-15] MEDS: LEVOTHYROXINE SODIUM 50MCG TABLET PO SCH (08:25)
[2020-04-15] MEDS: HYDROCHLOROTHIAZIDE 25MG TABLET PO SCH (08:25)
[2020-04-15] MEDS: CLOPIDOGREL 75MG TABLET PO SCH (08:25)
[2020-04-15] MEDS: SODIUM CHLORIDE 0.9% 1,000 ML IV SCH (10:02)
[2020-04-15] MEDS: INSULIN GLARGINE UD 100 UNITS/ML SYR SUBCUT SCH ×2 (10:09→23:24)
[2020-04-15 12:00] VITALS: BP 109/75
[2020-04-15 16:00] VITALS: BP 129/70
[2020-04-15] MEDS: FERROUS SULFATE 325MG TABLET PO SCH (17:00)
[2020-04-15 18:04] LABS: BASOPHILS % 0.2 % (0.0-2.0); EOSINOPHILS % 3.4 % (0.0-5.0); HEMATOCRIT. 31.7 % (36.0-48.0); HEMOGLOBIN. 10.4 g/dL (12.0-16.0); LYMPHOCYTES % 24.4 % (20.0-50.0); MEAN CORPUSCULAR HEMOGLOBIN 27.4 pg (28.0-32.0); MEAN CORPUSCULAR VOLUME 83.2 fL (81.0-99.0); MEAN PLATELET VOLUME 9.4 fl (7.4-10.4); MONOCYTES % 7.8 % (2.0-8.0); NEUTROPHILS % 64.2 % (40.0-76.0); PLATELET 347 x1000/uL (130-400); RED BLOOD CELL COUNT 3.81 mill/uL (4.2-5.4); RED CELL DISTRIBUTION WIDTH 16.5 % (11.6-14.6)
[2020-04-15 20:00] VITALS: BP 133/78
[2020-04-15] MEDS: BENAZEPRIL 10MG TABLET PO SCH (21:25)
[2020-04-16 04:00] VITALS: BP 139/70
[2020-04-16] MEDS: HYDROCODONE/ACETAMINOPHEN 5/325MG TABLET PO PRN ×3 (05:18→20:52)
[2020-04-16] MEDS: SODIUM CHLORIDE 0.9% 1,000 ML IV SCH ×2 (05:21→16:37)
[2020-04-16] MEDS: INSULIN LISPRO 100 UNITS/ML SUBCUT SCH ×4 (07:50→21:00)
[2020-04-16 08:00] VITALS: BP 101/61
[2020-04-16] MEDS: HYDROCHLOROTHIAZIDE 25MG TABLET PO SCH (08:02)
[2020-04-16] MEDS: DOCUSATE SODIUM 100MG CAPSULE PO SCH ×2 (08:02→16:39)
[2020-04-16] MEDS: ATORVASTATIN CALCIUM 20MG TABLET PO SCH (08:03)
[2020-04-16] MEDS: METFORMIN HCL 500MG TABLET PO SCH ×2 (08:03→16:53)
[2020-04-16] MEDS: CLOPIDOGREL 75MG TABLET PO SCH (08:03)
[2020-04-16] MEDS: BLOOD SUGAR DIAGNOSTIC STRIP TEST SCH ×4 (08:04→21:00)
[2020-04-16] MEDS: LEVOTHYROXINE SODIUM 50MCG TABLET PO SCH (08:04)
[2020-04-16] MEDS ORDERED: ACETAMINOPHEN 650MG/20.3ML UDC PO PRN (09:45)
[2020-04-16] MEDS: INSULIN GLARGINE UD 100 UNITS/ML SYR SUBCUT SCH ×2 (09:46→22:56)
[2020-04-16] MEDS: ONDANSETRON HCL 4MG/2ML INJ IV PRN ×3 (10:31→20:52)
[2020-04-16 12:00] VITALS: BP 109/63
[2020-04-16 16:00] VITALS: BP 117/68
[2020-04-16] MEDS: OXYCODONE HCL 5MG TABLET PO SCH (16:39)
[2020-04-16] MEDS: FERROUS SULFATE 325MG TABLET PO SCH (18:17)
[2020-04-16 20:00] VITALS: BP 111/58
[2020-04-16] MEDS: BENAZEPRIL 10MG TABLET PO SCH (20:52)
[2020-04-17] VITALS: BP 111/62
[2020-04-17] MEDS: SODIUM CHLORIDE 0.9% 1,000 ML IV SCH ×2 (01:37→22:05)
[2020-04-17 04:00] VITALS: BP 110/64
[2020-04-17] MEDS: LEVOTHYROXINE SODIUM 50MCG TABLET PO SCH (06:34)
[2020-04-17] MEDS: HYDROCODONE/ACETAMINOPHEN 5/325MG TABLET PO PRN ×3 (06:54→21:29)
[2020-04-17] MEDS: BLOOD SUGAR DIAGNOSTIC STRIP TEST SCH ×4 (07:46→21:29)
[2020-04-17] MEDS: INSULIN LISPRO 100 UNITS/ML SUBCUT SCH ×4 (07:48→22:01)
[2020-04-17 08:00] VITALS: BP 102/66
[2020-04-17] MEDS: METFORMIN HCL 500MG TABLET PO SCH ×2 (08:53→17:38)
[2020-04-17] MEDS: CLOPIDOGREL 75MG TABLET PO SCH (08:54)
[2020-04-17] MEDS: DOCUSATE SODIUM 100MG CAPSULE PO SCH ×2 (08:55→17:38)
[2020-04-17] MEDS: OXYCODONE HCL 5MG TABLET PO SCH ×3 (08:55→17:38)
[2020-04-17] MEDS: HYDROCHLOROTHIAZIDE 25MG TABLET PO SCH (08:55)
[2020-04-17] MEDS: ATORVASTATIN CALCIUM 20MG TABLET PO SCH (08:55)
[2020-04-17] MEDS: INSULIN GLARGINE UD 100 UNITS/ML SYR SUBCUT SCH ×2 (11:04→22:03)
[2020-04-17 12:00] VITALS: BP 104/59
[2020-04-17 16:00] VITALS: BP 115/64
[2020-04-17] MEDS: FERROUS SULFATE 325MG TABLET PO SCH (17:37)
[2020-04-17 20:00] VITALS: BP 107/59
[2020-04-17] MEDS: BENAZEPRIL 10MG TABLET PO SCH (21:29)
[2020-04-18] VITALS: BP 99/54
[2020-04-18 04:00] VITALS: BP 108/68
[2020-04-18] MEDS: LEVOTHYROXINE SODIUM 50MCG TABLET PO SCH (06:55)
[2020-04-18] MEDS: BLOOD SUGAR DIAGNOSTIC STRIP TEST SCH ×2 (07:43→12:56)
[2020-04-18] MEDS: INSULIN LISPRO 100 UNITS/ML SUBCUT SCH ×2 (07:50→13:06)
[2020-04-18 08:00] VITALS: BP 115/75
[2020-04-18] MEDS: HYDROCHLOROTHIAZIDE 25MG TABLET PO SCH (09:12)
[2020-04-18] MEDS: CLOPIDOGREL 75MG TABLET PO SCH (09:12)
[2020-04-18] MEDS: METFORMIN HCL 500MG TABLET PO SCH (09:12)
[2020-04-18] MEDS: ATORVASTATIN CALCIUM 20MG TABLET PO SCH (09:13)
[2020-04-18] MEDS: DOCUSATE SODIUM 100MG CAPSULE PO SCH (09:13)
[2020-04-18] MEDS: OXYCODONE HCL 5MG TABLET PO SCH ×2 (09:14→12:56)
[2020-04-18] MEDS: INSULIN GLARGINE UD 100 UNITS/ML SYR SUBCUT SCH (11:21)
[2020-04-18 12:00] VITALS: BP 103/65
[2020-04-18 13:19] VITALS: BP 103/65
[2020-04-18 16:00] VITALS: BP 100/64
== END 2020-04-18 16:36 | DRG 471 ==
LOC: OR 05:15 → MICUNO 05:16 → 6EST 04-12 14:07
PROVIDERS: ADMIT Internal Medicine; ATTEND Internal Medicine
PROC: 0RG10J1 Fusion of Cervical Vertebral Joint with Synthetic Substitute, Posterior Approach, Posterior Column, Open Approach (ICD-10-PCS; principal; 2020-04-11)
PROC: 00NW0ZZ Release Cervical Spinal Cord, Open Approach (ICD-10-PCS; 2020-04-11)
PROC: 4A11X4Z Monitoring of Peripheral Nervous Electrical Activity, External Approach (ICD-10-PCS; 2020-04-11)
PROC: 5A1935Z Respiratory Ventilation, Less than 24 Consecutive Hours (ICD-10-PCS; 2020-04-11)
PROC: 0BH18EZ Insertion of Endotracheal Airway into Trachea, Via Natural or Artificial Opening Endoscopic (ICD-10-PCS; 2020-04-11)
DX: M48.02 Spinal stenosis, cervical region (principal); G82.50 Quadriplegia, unspecified; M47.12 Other spondylosis with myelopathy, cervical region; G95.20 Unspecified cord compression; I10 Essential (primary) hypertension; E11.9 Type 2 diabetes mellitus without complications; E03.9 Hypothyroidism, unspecified; K21.9 Gastro-esophageal reflux disease without esophagitis; E78.5 Hyperlipidemia, unspecified; R26.89 Other abnormalities of gait and mobility; E78.00 Pure hypercholesterolemia, unspecified; Z96.659 Presence of unspecified artificial knee joint; M47.22 Other spondylosis with radiculopathy, cervical region; R53.81 Other malaise; G89.4 Chronic pain syndrome; Z20.828 Contact with and (suspected) exposure to other viral communicable diseases; D64.9 Anemia, unspecified; D72.829 Elevated white blood cell count, unspecified; Z79.890 Hormone replacement therapy; Z88.0 Allergy status to penicillin; Z91.013 Allergy to seafood; Z86.73 Personal history of transient ischemic attack (TIA), and cerebral infarction without residual deficits; Z79.4 Long term (current) use of insulin; Z79.899 Other long term (current) drug therapy
CPT/HCPCS: 36415; 36600; 72040; 72141; 76000; 80048; 82375; 82805; 82962; 83036; 84145; 85025; 86850; 86900; 87635; 94002; 95925; 95926; 95928; 95929; 97116; 97163; 97166; 97530; 97535; C1713; J1100; J1170; J1815; J2250; J2270; J2405; J2704; J2710; J3010; J3490; J7030; J7050; L0172

== ENCOUNTER 2024-05-05 17:42 | Emergency (ER) | payer MEDICARE, MEDICAID ==
[~2024-05-05] VITALS: Ht 157.5 cm; Wt 64.4 kg
[~2024-05-05 17:42] MED LIST changes: +ALEN70SO4 PO; +CLOP-31 PO; -CLOP75TA4 PO; +DOCU-150 MT; +DULA0.75 SQ; +HYDR-459 MT; -INSNOV SUBCUT; +INSU100C6 SQ; -INSU100I24 SQ; +LANTUSUD SUBCUT; +METH-774 MT; +T3 PO
[2024-05-05 17:46] VITALS: TEMP 97.8; O2SAT 99
[2024-05-05] MEDS: HYDROCODONE/ACETAMINOPHEN 5/325MG TABLET PO ONE (20:24)
[2024-05-05 21:52] VITALS: BP 135/87; PULSE 90; RESP 18; O2SAT 99
== END 2024-05-05 21:52 | disposition home or self-care (01) ==
LOC: ER 17:42
DX: M25.552 Pain in left hip (principal); M54.50 Low back pain, unspecified; E11.9 Type 2 diabetes mellitus without complications; I10 Essential (primary) hypertension; Z79.899 Other long term (current) drug therapy; Z88.0 Allergy status to penicillin
CPT/HCPCS: 72100; 73502; 99284

== ENCOUNTER 2025-01-08 16:05 | Emergency (ER) | payer MEDICARE, MEDICAID ==
[~2025-01-08] VITALS: Ht 167.6 cm; Wt 62.0 kg
[~2025-01-08 16:05] MED LIST changes: -DOCU-150 MT; +DOCU-422 MT
[2025-01-08 16:25] VITALS: O2SAT 99
[2025-01-08] MEDS: ACETAMINOPHEN 500MG TABLET PO ONE (17:35)
[2025-01-08 18:30] VITALS: BP 119/65; PULSE 79; RESP 18; TEMP 36.6; O2SAT 100
== END 2025-01-08 18:39 | disposition home or self-care (01) ==
LOC: ER 16:05
DX: G43.909 Migraine, unspecified, not intractable, without status migrainosus (principal); E11.9 Type 2 diabetes mellitus without complications; I10 Essential (primary) hypertension; I25.10 Atherosclerotic heart disease of native coronary artery without angina pectoris; Z79.02 Long term (current) use of antithrombotics/antiplatelets; Z79.84 Long term (current) use of oral hypoglycemic drugs; Z79.890 Hormone replacement therapy; Z79.899 Other long term (current) drug therapy; Z88.0 Allergy status to penicillin
CPT/HCPCS: 73562; 99284